=== PATIENT | male | born 2000 | race Two or more races ===

== ENCOUNTER 2020-07-19 10:47 | Emergency (ER) | payer MEDICAID ==
[~2020-07-19] VITALS: Ht 170.2 cm; Wt 64.9 kg
--- NOTE | 2020-07-19 11:15 | NUR ---
THE PATIENT BIBS FOR C/O ABDOMINAL PAIN 08/17, DIFFICULTY IN URINATING. ALERT AND ORIENTED X4. RESPIRATION REGULAR AND UNLABORED. WILL CONTINUE TO MONITOR THE PATIENT.
[2020-07-19] MEDS ORDERED: KETOROLAC TROMETHAMINE 15 MG/ML VIAL ONE (11:28)
[2020-07-19] MEDS ORDERED: IV NS 0.9% 1,000 ML BAG IV ONE (11:30)
[2020-07-19] MEDS ORDERED: KETOROLAC TROMETHAMINE INJ 30 MG/ML VIAL IV ONE (11:30)
[2020-07-19 11:41] LABS: BILIRUBIN,URINE SMALL (NEGATIVE); COLOR,URINE YELLOW (YELLOW); LEUKOCYTE ESTERASE ,URINE Negative (NEGATIVE); NITRITE, URINE Negative (NEGATIVE); PROTEIN,URINE Negative (NEGATIVE); UGLUCOSE Negative (NEGATIVE); UROBILINOGEN,URINE 0.2 EU/dL (0.2)
[2020-07-19 11:43] LABS: BASOPHILS % (AUTO) 0.7 % (0.0-2.0); EOSINOPHILS % (AUTO) 2.6 % (0.0-6.0); HEMATOCRIT 45 % (39-51); HEMOGLOBIN 15.1 g/dL (13.5-17.5); LYMPHOCYTES # (AUTO) 2.8 /CMM (0.8-4.8); MEAN CORPUSCULAR HGB CONC 33 g/dl (31.0-36.0); MEAN CORPUSCULAR VOLUME 88 fL (80-96); MONOCYTES # (AUTO) 0.4 /CMM (0.1-1.30); MONOCYTES % (AUTO) 6.4 % (2.0-12.0); NEUTROPHILS % (AUTO) 47.3 % (43.0-81.0); PLATELET COUNT (AUTO) 221 /CMM (150-450); RED BLOOD CELL COUNT(AUTO) 5.16 MIL/uL (4.5-6.0); WHITE BLOOD COUNT (AUTO) 6.4 K/uL (4.3-11.0)
[2020-07-19 12:03] LABS: CALCIUM, SERUM 9.8 mg/dL (8.5-10.1); POTASSIUM 3.9 mmol/L (3.5-5.1)
[2020-07-19 12:04] LABS: BACTERIA,URINE None seen /HPF (None Seen); SQUAMOUS EPITHELIAL CELL,UR Rare /HPF (None Seen); WBC,URINE 0-2 /HPF (0-3)
[2020-07-19 12:08] LABS: ALBUMIN 4.3 g/dL (3.4-5.0); BILIRUBIN,DIRECT 0.2 mg/dL (0.0-0.2); BILIRUBIN,TOTAL 0.9 mg/dL (0.2-1.0); TOTAL PROTEIN, SERUM 7.6 g/dL (6.4-8.2)
[2020-07-19] MEDS ORDERED: AMOX-430 PO (12:31)
--- NOTE | 2020-07-19 12:43 | NUR ---
PT AOX4, AMBULATORY WITH STEADY GAIT, IV removed. Catheter intact and site benign. Pressure and 4x4 applied to site. No bleeding noted. Patient discharged to home in stable condition. Written and verbal after care instructions given. Patient verbalizes understanding of instruction.
[2020-07-19 12:45] VITALS: BP 129/74
== END 2020-07-19 12:46 | disposition home or self-care (01) ==
LOC: ER 10:54
DX: K52.9 Noninfective gastroenteritis and colitis, unspecified (principal); E86.0 Dehydration
CPT/HCPCS: 36415; 74176; 80048; 80076; 81001; 83690; 85025; 96361; 96374; 99284; J1885; J7030

== ENCOUNTER 2021-09-04 22:16 | Emergency (ER) | payer MEDICAID ==
[~2021-09-04] VITALS: Ht 170.2 cm; Wt 59.9 kg
[~2021-09-04 22:16] MED LIST: AMOX-430 PO
--- NOTE | 2021-09-04 23:52 | NUR ---
BIBSELF C/O LEFT SIDE ABD PAIN RAD TO LEFT FLANK, STARTED AT 5 PM. T A/OX4. TOLERATING R/A WELL; RESP EVEN AND NONLABORED. CONNECTED PT TO POX AND MONITOR.
--- NOTE | 2021-09-05 00:17 | NUR ---
RAC #[id number] S/L; BLOOD AND URINE COLLECTED AND SENT TO LAB
[2021-09-05] MEDS ORDERED: KETOROLAC TROMETHAMINE INJ 30 MG/ML VIAL ONE (00:19)
[2021-09-05] MEDS ORDERED: ONDANSETRON HCL/PF 4 MG/2 ML VIAL ONE (00:19)
[2021-09-05] MEDS ORDERED: KETOROLAC TROMETHAMINE INJ 30 MG/ML VIAL IV ONE (00:30)
[2021-09-05] MEDS ORDERED: ONDANSETRON HCL/PF 4 MG/2 ML VIAL IVP ONE (00:30)
[2021-09-05] MEDS ORDERED: IV NS 0.9% 1,000 ML BAG IV ONE (00:30)
[2021-09-05 00:36] LABS: BASOPHILS % (AUTO) 0.4 % (0.0-2.0); BILIRUBIN,URINE SMALL (NEGATIVE); COLOR,URINE YELLOW (YELLOW); EOSINOPHILS % (AUTO) 3.3 % (0.0-6.0); HEMATOCRIT 47 % (39-51); HEMOGLOBIN 15.6 g/dL (13.5-17.5); LEUKOCYTE ESTERASE ,URINE NEGATIVE (NEGATIVE); LYMPHOCYTES # (AUTO) 4.2 K/uL (0.8-4.8); LYMPHOCYTES % (AUTO) 44.3 % (20.0-44.0); MEAN CORPUSCULAR HGB CONC 34 g/dl (31.0-36.0); MEAN CORPUSCULAR VOLUME 88 fL (80-96); MONOCYTES # (AUTO) 0.6 K/uL (0.1-1.30); MONOCYTES % (AUTO) 6.1 % (2.0-12.0); NEUTROPHILS # (AUTO) 4.4 K/uL (1.8-8.9); NEUTROPHILS % (AUTO) 45.9 % (43.0-81.0); NITRITE, URINE NEGATIVE (NEGATIVE); PLATELET COUNT (AUTO) 241 K/uL (150-450); PROTEIN,URINE 30 mg/dl (NEGATIVE); RED BLOOD CELL COUNT(AUTO) 5.31 MIL/uL (4.5-6.0); UGLUCOSE NEGATIVE (NEGATIVE); UROBILINOGEN,URINE 0.2 EU/dL (0.2); WHITE BLOOD COUNT (AUTO) 9.6 K/uL (4.3-11.0)
--- NOTE | 2021-09-05 00:48 | NUR ---
PT RETURNED TO ER BED [address]
[2021-09-05 00:53] LABS: CALCIUM, SERUM 9.5 mg/dL (8.5-10.1); CREATININE 1.1 mg/dL (0.6-1.3); POTASSIUM 3.9 mmol/L (3.5-5.1)
[2021-09-05 00:56] LABS: ALBUMIN 4.6 g/dL (3.4-5.0); BILIRUBIN,DIRECT 0.1 mg/dL (0.0-0.2); BILIRUBIN,TOTAL 0.6 mg/dL (0.2-1.0); TOTAL PROTEIN, SERUM 8.7 g/dL (6.4-8.2)
[2021-09-05] MEDS ORDERED: ONDA4TAB5 PO (02:11)
[2021-09-05] MEDS ORDERED: IBUP-1957 PO (02:11)
--- NOTE | 2021-09-05 02:23 | NUR ---
Patient discharged to home in stable condition. Written and verbal after care instructions given. Patient verbalizes understanding of instruction. IV removed. Catheter intact and site benign. Pressure and 4x4 applied to site. No bleeding noted.
[2021-09-05 03:44] VITALS: BP 121/71
[2021-09-05 06:42] LABS: BACTERIA,URINE Few /HPF (None Seen); MUCUS,URINE Moderate /LPF (None Seen); SQUAMOUS EPITHELIAL CELL,UR Few /HPF (None Seen); URINE AMORPHOUS URATE Moderate /HPF (None Seen); WBC,URINE 0-2 /HPF (0-3)
== END 2021-09-05 02:23 | disposition home or self-care (01) ==
LOC: ER 22:46
DX: R10.32 Left lower quadrant pain (principal)
CPT/HCPCS: 99284; 74176; 96374; 96361; 96375; 85025; 80048; 83690; 80076; 81001; 36415; J1885; J2405; J7030

== ENCOUNTER 2022-03-16 09:57 | Emergency (ER) | payer MEDICAID, OTHER ==
[~2022-03-16] VITALS: Ht 165.1 cm; Wt 63.0 kg
[~2022-03-16 09:57] MED LIST changes: +IBUP-1957 PO; +ONDA4TAB5 PO
--- NOTE | 2022-03-16 10:09 | NUR ---
PT IN BED C/O RIGHT JOINT HIP PAIN, REFFERED TO THE BACK. SEEN BY . [employer] E[employer]OMIST IN THE ROOM
[2022-03-16] MEDS ORDERED: IBUP-1953 PO (10:18)
[2022-03-16 10:30] VITALS: BP 135/75
== END 2022-03-16 10:30 | disposition home or self-care (01) ==
LOC: ER 09:59
DX: S73.101A Unspecified sprain of right hip, initial encounter (principal); Z79.899 Other long term (current) drug therapy; X58.XXXA Exposure to other specified factors, initial encounter; Y93.89 Activity, other specified; Y92.89 Other specified places as the place of occurrence of the external cause; Y99.8 Other external cause status
CPT/HCPCS: 73502

== ENCOUNTER 2022-07-02 20:09 | Emergency (ER) | payer OTHER ==
[~2022-07-02] VITALS: Ht 177.8 cm; Wt 59.0 kg
[~2022-07-02 20:09] MED LIST changes: +IBUP-1953 PO
[2022-07-02 21:30] VITALS: BP 137/74
[2022-07-02] MEDS ORDERED: IBUPROFEN 600 MG TABLET PO ONE (21:30)
--- NOTE | 2022-07-02 21:30 | NUR ---
BIBSELF C/O COUGH. TOELRATING R/A WELL WITH NO RESP DISTRESS.
--- NOTE | 2022-07-02 21:46 | NUR ---
X-RAY AT BEDSIDE
[2022-07-02] MEDS ORDERED: IBUPROFEN 600 MG TABLET ONE (21:47)
[2022-07-02] MEDS ORDERED: IBUP-1955 PO (22:17)
[2022-07-02] MEDS ORDERED: AZIT250T13 PO (22:17)
[2022-07-02] MEDS ORDERED: PROM118S5 PO (22:17)
--- NOTE | 2022-07-02 22:20 | NUR ---
Patient discharged to home in stable condition. Written and verbal after care instructions given. Patient verbalizes understanding of instruction.
== END 2022-07-02 22:21 | disposition home or self-care (01) ==
LOC: ER 20:15
DX: J06.9 Acute upper respiratory infection, unspecified (principal); Z79.899 Other long term (current) drug therapy
CPT/HCPCS: 71045-TC